=== PATIENT | male | born 1945 | race Caucasian/White ===

== ENCOUNTER 2017-12-09 11:23 | Inpatient (IN) | payer OTHER ==
[~2017-12-09] VITALS: Ht 188 cm; Wt 136.4 kg
[~2017-12-09 11:23] MED LIST: IBUP800T24 PO; LORA-352 PO; METO25TA5 PO; OMEP20CA74 OR; SIMV-13 PO; SUCR1TAB PO; SULI200T4 PO; TICA90TA PO; TRIA37.575 PO
[2017-12-09 11:56] LABS: Basophils # (auto) 0.1 uL; Basophils % (auto) 0.5 % (0.0-2.0); Eosinophils # (auto) 0.1 uL; Eosinophils % (auto) 0.8 % (0.0-7.0); Hematocrit 44.8 % (41.0-53.0); Hemoglobin 14.8 g/dL (13.5-17.5); Lymphocytes # (auto) 1.4 uL; Lymphocytes % (auto) 12.8 % (10.0-50.0); Mean Corpuscular Hemoglobin 31.8 pg (28.0-32.0); Mean Corpuscular Hgb Conc. 33.1 g/dL (32.0-36.0); Mean Corpuscular Volume 95.9 fL (80.0-100.0); Monocytes % (auto) 9.1 % (0.0-12.0); Neutrophils # (auto) 8.3 uL; Neutrophils % (auto) 76.8 % (37.0-80.0); Platelet Count (auto) 372 10^3/uL (140-450); Red Blood Cells 4.67 10^6/uL (4.5-5.90); Red Cell Distribution Width 14.4 % (11.8-14.3); White Blood Cell 10.8 10^3/uL (4.4-10.8)
[2017-12-09 12:13] LABS: Alanine Aminotransferase 38 U/L (16-61); Albumin 3.4 g/dL (3.4-5.0); Alkaline Phosphatase 84 U/L (45-117); Anion Gap 8 (5-15); Aspartate Aminotransferase 30 U/L (15-37); BUN/Creatinine Ratio 13.4; Bilirubin, Total 0.4 mg/dL (0.2-1.0); Blood Urea Nitrogen 11 mg/dL (7-18); Calcium 8.9 mg/dL (8.5-10.1); Carbon Dioxide 26 mmol/L (21-32); Chloride 103 mmol/L (98-107); GFR African American 119 mL/min; GFR Non-African American 98 mL/min; Glucose 120 mg/dL (74-106); Magnesium 2.4 mg/dL (1.6-2.6); Potassium 3.9 mmol/L (3.5-5.1); Sodium 137 mmol/L (136-145)
[2017-12-09] MEDS ORDERED: ALUM & MAG HYDROX-SIMETH LIQ(MAALOX) 30 ML PO ONE (16:45)
[2017-12-09] MEDS ORDERED: NITROGLYCERIN 0.4 MG SL TAB SL PRN (16:45)
[2017-12-09] MEDS ORDERED: MORPHINE SULFATE 4 MG/ML SYR/VIAL IV PRN (16:45)
[2017-12-09] MEDS ORDERED: ONDANSETRON HCL 4 MG/2 ML VIAL IV PRN (16:45)
[2017-12-09] MEDS ORDERED: ALUM & MAG HYDROX-SIMETH LIQ(MAALOX) 30 ML PO PRN (16:45)
[2017-12-09] MEDS ORDERED: TEMAZEPAM 15 MG CAP PO PRN (16:45)
[2017-12-09] MEDS ORDERED: LIDOCAINE VISCOUS 2% 15ML UD PO ONE (17:30)
[2017-12-09] MEDS ORDERED: DONNATAL 5ml ORAL Elix (BELLADONNA ALK-PHENOBARB) PO ONE (17:30)
[2017-12-09] MEDS: SUCRALFATE 1 GM TAB PO SCH (17:44)
[2017-12-09 19:38] VITALS: BP 142/93
[2017-12-09] MEDS: ATORVASTATIN 20 MG TAB PO SCH (21:34)
[2017-12-09] MEDS: TICAGRELOR 90 MG TAB PO SCH (21:34)
[2017-12-09] MEDS: ACETAMINOPHEN 325 MG TAB PO PRN (21:34)
[2017-12-09 22:00] VITALS: BP 107/68
[2017-12-10 05:00] VITALS: BP 129/89
[2017-12-10] MEDS: SUCRALFATE 1 GM TAB PO SCH ×2 (06:43→17:07)
[2017-12-10 06:47] LABS: BUN/Creatinine Ratio 12.2; Calcium 8.8 mg/dL (8.5-10.1); Potassium 3.9 mmol/L (3.5-5.1)
[2017-12-10] MEDS ORDERED: CLOPIDOGREL BISULFATE 75 MG TAB PO ONE (07:30)
[2017-12-10] MEDS ORDERED: MORP15TA PO (07:53)
[2017-12-10] MEDS ORDERED: MELO1TAB56 PO (07:53)
[2017-12-10] MEDS ORDERED: ASPI300S4 PR (07:53)
[2017-12-10] MEDS ORDERED: CYCL1TAB18 PO (07:53)
[2017-12-10] MEDS ORDERED: HYDR-4798 PO (07:53)
[2017-12-10] MEDS ORDERED: METF-370 PO (07:53)
[2017-12-10] MEDS ORDERED: DIAZ10TA3 PO (07:53)
[2017-12-10] MEDS ORDERED: LIDOCAINE 2%HCL (LOCAL ANESTH.) INJ 20ML MDV ONE (08:11)
[2017-12-10] MEDS ORDERED: IODIXANOL 320MG/ML 100ML BTL IV ONE (08:11)
[2017-12-10] MEDS: ASPirin 81 mg TAB PO SCH (08:45)
[2017-12-10 09:00] VITALS: BP 131/85
[2017-12-10] MEDS ORDERED: fentaNYL CITRATE 100 MCG/2 ML VL ONE (09:23)
[2017-12-10] MEDS ORDERED: SODIUM CHL 0.9% 50 ML ONE (09:23)
[2017-12-10] MEDS ORDERED: ANGIOMAX 250 MG VIAL IV ONE (09:23)
[2017-12-10] MEDS ORDERED: MIDAZOLAM HCL 1MG/1ML-2 ML VIAL ONE (09:23)
[2017-12-10] MEDS ORDERED: VERAPAMIL 2.5MG/ML INJ 2ML VIAL IV ONE (09:24)
[2017-12-10] MEDS: PANTOPRAZOLE 40 MG TAB PO SCH (10:00)
[2017-12-10] MEDS: METOPROLOL SUCCINATE XL 50 MG TAB PO SCH (10:00)
[2017-12-10] MEDS: TRIAMTERENE/HCTZ 37.5/25 MG CAP PO SCH (10:00)
[2017-12-10] MEDS: TICAGRELOR 90 MG TAB PO SCH ×2 (10:00→21:45)
[2017-12-10] MEDS: LORATADINE 10 MG TAB PO SCH (10:00)
[2017-12-10 13:22] LABS: INR 1.07 (0.9-1.15); Partial Thromboplastin Time 47.9 sec (22.64-33.71); Prothrombin Time 11.7 sec (9.37-12.3)
[2017-12-10 15:00] VITALS: BP 110/70
[2017-12-10] MEDS: ACETAMINOPHEN 325 MG TAB PO PRN ×2 (15:26→21:46)
[2017-12-10] MEDS: ATORVASTATIN 20 MG TAB PO SCH (21:45)
[2017-12-10 22:00] VITALS: BP 95/59
[2017-12-11] MEDS: HYDROcodone-ACET 5/325MG TAB PO PRN ×3 (04:04→12:31)
[2017-12-11 05:23] VITALS: BP 124/87
[2017-12-11] MEDS: ASPirin 81 mg TAB PO SCH (06:10)
[2017-12-11] MEDS: SUCRALFATE 1 GM TAB PO SCH (06:10)
[2017-12-11 07:16] LABS: Potassium 3.7 mmol/L (3.5-5.1)
[2017-12-11 07:25] LABS: BUN/Creatinine Ratio 17.8
[2017-12-11] MEDS: MORPHINE SULFATE 4 MG/ML SYR/VIAL IV PRN ×2 (07:59→12:01)
[2017-12-11 09:00] VITALS: BP 130/83
[2017-12-11] MEDS: TRIAMTERENE/HCTZ 37.5/25 MG CAP PO SCH (09:41)
[2017-12-11] MEDS: TICAGRELOR 90 MG TAB PO SCH (09:41)
[2017-12-11] MEDS: METOPROLOL SUCCINATE XL 50 MG TAB PO SCH (09:42)
[2017-12-11] MEDS: PANTOPRAZOLE 40 MG TAB PO SCH (09:43)
[2017-12-11] MEDS: LORATADINE 10 MG TAB PO SCH (09:45)
[2017-12-11 12:00] VITALS: BP 122/90
== END 2017-12-11 13:23 | disposition home or self-care (01) | DRG 251 ==
LOC: EDBD 11:23 → ER 11:23 → TELE 11:24 → TELE-EAST 19:38
PROVIDERS: ADMIT Family Medicine; ATTEND Family Medicine
PROC: 02703ZZ Dilation of Coronary Artery, One Artery, Percutaneous Approach (ICD-10-PCS; principal; 2017-12-10)
PROC: 4A023N7 Measurement of Cardiac Sampling and Pressure, Left Heart, Percutaneous Approach (ICD-10-PCS; 2017-12-10)
PROC: B2111ZZ Fluoroscopy of Multiple Coronary Arteries using Low Osmolar Contrast (ICD-10-PCS; 2017-12-10)
DX: T82.855A Stenosis of coronary artery stent, initial encounter (principal); E66.2 Morbid (severe) obesity with alveolar hypoventilation; E11.9 Type 2 diabetes mellitus without complications; I25.110 Atherosclerotic heart disease of native coronary artery with unstable angina pectoris; I10 Essential (primary) hypertension; E78.5 Hyperlipidemia, unspecified; K21.9 Gastro-esophageal reflux disease without esophagitis; Y83.8 Other surgical procedures as the cause of abnormal reaction of the patient, or of later complication, without mention of misadventure at the time of the procedure; Z88.0 Allergy status to penicillin; Z79.899 Other long term (current) drug therapy; Z68.38 Body mass index [BMI] 38.0-38.9, adult; Z79.82 Long term (current) use of aspirin; Z82.49 Family history of ischemic heart disease and other diseases of the circulatory system; Z87.891 Personal history of nicotine dependence; Z95.5 Presence of coronary angioplasty implant and graft; Y92.89 Other specified places as the place of occurrence of the external cause; Z90.49 Acquired absence of other specified parts of digestive tract
CPT/HCPCS: 36415; 71045; 80048; 80053; 80061; 83735; 83880; 84443; 84484; 85025; 85610; 85730; 92920; 93005; 93458; 94761; 99152; J2250; Q9967

== ENCOUNTER 2019-12-24 17:05 | Inpatient (IN) | payer OTHER ==
[~2019-12-24] VITALS: Ht 188 cm; Wt 136.1 kg
[~2019-12-24 17:05] MED LIST changes: +ASPI300S4 PR; +CYCL1TAB18 PO; +DIAZ10TA3 PO; +HYDR-4798 PO; -IBUP800T24 PO; +METF-370 PO; +MORP15TA PO; -SULI200T4 PO; +TRIA37.55 PO; -TRIA37.575 PO
[2019-12-24] MEDS ORDERED: SODIUM CHLORIDE 0.9% 1,000 ML IV ONE ×2 (17:41→23:45)
[2019-12-24] MEDS ORDERED: ASPirin 81 mg TAB PO ONE (17:45)
[2019-12-24 18:10] LABS: Basophils # (auto) 0 10 ^3/uL (0-0.2); Basophils % (auto) 0.4 % (0.0-2.0); Eosinophils # (auto) 0 10 ^3/uL (0-0.8); Eosinophils % (auto) 0.2 % (0.0-7.0); Hematocrit 41.7 % (41.0-53.0); Hemoglobin 14.2 g/dL (13.5-17.5); Lymphocytes % (auto) 8.9 % (10.0-50.0); Mean Corpuscular Hemoglobin 32.6 pg (28.0-32.0); Mean Corpuscular Volume 95.9 fL (80.0-100.0); Monocytes # (auto) 0.9 10 ^3/uL (0-1.3); Monocytes % (auto) 7.7 % (0.0-12.0); Neutrophils # (auto) 9.3 10 ^3/uL (1.6-8.6); Neutrophils % (auto) 82.8 % (37.0-80.0); Platelet Count (auto) 302 10^3/uL (140-450); Red Blood Cells 4.35 10^6/uL (4.5-5.90); Red Cell Distribution Width 13.9 % (11.8-14.3); White Blood Cell 11.2 10^3/uL (4.4-10.8)
[2019-12-24 18:25] LABS: INR 1.09 (0.9-1.15); Partial Thromboplastin Time 34.8 sec (23.64-32.05)
[2019-12-24 18:26] LABS: Albumin 2.7 g/dL (3.4-5.0); Anion Gap 4 (5-15); BUN/Creatinine Ratio 17.3; Blood Urea Nitrogen 17 mg/dL (7-18); Calcium 8.5 mg/dL (8.5-10.1); Carbon Dioxide 26 mmol/L (21-32); Chloride 106 mmol/L (98-107); GFR African American 96 mL/min; GFR Non-African American 80 mL/min; Glucose 116 mg/dL (74-106); Magnesium 1.7 mg/dL (1.6-2.6); Potassium 4.1 mmol/L (3.5-5.1); Sodium 136 mmol/L (136-145)
[2019-12-24 18:38] LABS: Alanine Aminotransferase 29 U/L (16-61); Alkaline Phosphatase 108 U/L (45-117); Aspartate Aminotransferase 18 U/L (15-37); Bilirubin, Total 0.5 mg/dL (0.2-1.0); Total Protein 7.1 g/dL (6.4-8.2)
[2019-12-24] MEDS ORDERED: ONDANSETRON HCL 4 MG/2 ML VIAL IV ONE (19:00)
[2019-12-24] MEDS ORDERED: MORPHINE SULF INJ 2 MG/ML SYRINGE 1ML IV ONE (19:00)
[2019-12-24 19:59] LABS: Urine WBC None Seen /hpf (0 - 3)
[2019-12-24 20:09] LABS: Urine Bacteria NONE SEEN /hpf (None Seen); Urine Blood Negative /uL (Negative); Urine Mucus FEW (None Seen); Urine Specific Gravity 1.011 (1.001-1.035)
[2019-12-24] MEDS ORDERED: MORPHINE SULF INJ 2 MG/ML SYRINGE 1ML IV PRN (23:45)
[2019-12-24] MEDS ORDERED: NITROGLYCERIN 0.4 MG SL TAB SL PRN (23:45)
[2019-12-24] MEDS ORDERED: ONDANSETRON HCL 4 MG/2 ML VIAL IV PRN (23:45)
[2019-12-24] MEDS ORDERED: MORPHINE SULFATE 4 MG/ML SYR/VIAL IV PRN (23:45)
[2019-12-24] MEDS ORDERED: IOHEXOL 350 MG/ML 100ML IJ ONE (23:51)
[2019-12-25] VITALS (7 sets, daily range): BP systolic 106–127; BP diastolic 65–81
[2019-12-25] MEDS ORDERED: ENOXAPARIN SOD 150 MG/1 ML SYRINGE SC ONE
[2019-12-25] MEDS ORDERED: ATORVASTATIN 20 MG TAB PO SCH (00:08)
[2019-12-25] MEDS ORDERED: SILO8CAP13 PO (03:29)
[2019-12-25] MEDS ORDERED: ESOM20CA PO (03:29)
[2019-12-25 06:25] LABS: Basophils # (auto) 0 10 ^3/uL (0-0.2); Basophils % (auto) 0.4 % (0.0-2.0); Eosinophils # (auto) 0 10 ^3/uL (0-0.8); Eosinophils % (auto) 0.1 % (0.0-7.0); Hematocrit 40.5 % (41.0-53.0); Lymphocytes # (auto) 0.9 10 ^3/uL (0.4-5.4); Lymphocytes % (auto) 10.9 % (10.0-50.0); Mean Corpuscular Hemoglobin 33.2 pg (28.0-32.0); Mean Corpuscular Hgb Conc. 34.6 g/dL (32.0-36.0); Mean Corpuscular Volume 95.8 fL (80.0-100.0); Monocytes # (auto) 0.6 10 ^3/uL (0-1.3); Monocytes % (auto) 7.3 % (0.0-12.0); Neutrophils # (auto) 6.7 10 ^3/uL (1.6-8.6); Neutrophils % (auto) 81.3 % (37.0-80.0); Platelet Count (auto) 245 10^3/uL (140-450); Red Blood Cells 4.23 10^6/uL (4.5-5.90); White Blood Cell 8.2 10^3/uL (4.4-10.8)
[2019-12-25 06:44] LABS: Calcium 8.1 mg/dL (8.5-10.1); Potassium 4.4 mmol/L (3.5-5.1)
[2019-12-25 06:51] LABS: BUN/Creatinine Ratio 14.9
[2019-12-25] MEDS ORDERED: ENOXAPARIN SOD 40 MG/0.4 ML SYRINGE SC SCH (10:00)
[2019-12-25] MEDS ORDERED: PANTOPRAZOLE 40 MG TAB PO SCH (10:00)
[2019-12-25] MEDS ORDERED: METOPROLOL TARTRATE 25 MG TAB PO SCH (10:00)
[2019-12-25] MEDS ORDERED: ASPirin 300 MG RECTAL SUPP PR SCH (10:00)
[2019-12-25] MEDS ORDERED: TICAGRELOR 90 MG TAB PO SCH (10:00)
== END 2019-12-25 19:15 | disposition home health service (06) | DRG 303 ==
LOC: EDBD 17:05 → ER 17:05 → TELE 17:06 → TELE-WESTW 23:49
PROVIDERS: ADMIT Hospitalist; ATTEND Hospitalist
DX: I25.110 Atherosclerotic heart disease of native coronary artery with unstable angina pectoris (principal); I10 Essential (primary) hypertension; E11.9 Type 2 diabetes mellitus without complications; N40.0 Benign prostatic hyperplasia without lower urinary tract symptoms; I48.91 Unspecified atrial fibrillation; E78.5 Hyperlipidemia, unspecified; Z95.5 Presence of coronary angioplasty implant and graft; Z88.0 Allergy status to penicillin; Z90.49 Acquired absence of other specified parts of digestive tract; Z87.11 Personal history of peptic ulcer disease
CPT/HCPCS: 36415; 71046; 71275; 80048; 80053; 80061; 81001; 83036; 83735; 84443; 84484; 85025; 85379; 85610; 85730; 93306; 96361; 96372; 96374; 96375; G0378; J2405

== ENCOUNTER 2022-06-26 06:21 | Day surgery (SDC) | payer OTHER ==
[~2022-06-26] VITALS: Ht 188 cm; Wt 140.6 kg
[~2022-06-26 06:21] MED LIST changes: +ASPI1TAB20 PO; -ASPI300S4 PR; +ATOR-47 PO; -CYCL1TAB18 PO; -DIAZ10TA3 PO; +ESOM20CA PO; -HYDR-4798 PO; -LORA-352 PO; +MELO1TAB56 PO; +MONT-8 PO; -MORP15TA PO; -OMEP20CA74 OR; -SIMV-13 PO; -SUCR1TAB PO; -TRIA37.55 PO
[2022-06-26] MEDS ORDERED: VANCOMYCIN HCL 1000 MG VL ONE (07:06)
[2022-06-26] MEDS ORDERED: BUPIVACAINE W/ EPINEPH 0.5% INJ 50ML MDV IJ ONE (08:42)
[2022-06-26] MEDS ORDERED: LIDOCAINE W/ EPINEPHRINE 2% INJ 20ML VIAL ONE (08:50)
[2022-06-26] MEDS ORDERED: LIDOCAINE HCL 100 MG/5ML (2%) SYRG INJ IV ONE (09:07)
[2022-06-26 09:55] VITALS: BP 115/73
== END 2022-06-26 10:22 | disposition home or self-care (01) ==
LOC: SUR 06:21
PROVIDERS: ATTEND Orthopaedic Surgery Adult Reconstructive Orthopaedic Surgery
DX: M65.331 Trigger finger, right middle finger (principal); I10 Essential (primary) hypertension; E11.9 Type 2 diabetes mellitus without complications; Z95.5 Presence of coronary angioplasty implant and graft; Z98.890 Other specified postprocedural states; Z79.899 Other long term (current) drug therapy; Z88.0 Allergy status to penicillin; Z20.822 Contact with and (suspected) exposure to COVID-19
CPT/HCPCS: 26055; 82962; J3370; U0003

== ENCOUNTER 2024-07-24 20:33 | Emergency (ER) | payer OTHER ==
[~2024-07-24] VITALS: Ht 188 cm; Wt 140.9 kg
[~2024-07-24 20:33] MED LIST changes: +MELO15TA29 PO; -MELO1TAB56 PO
[2024-07-24 21:07] LABS: Basophils # (auto) 0.1 10 ^3/uL (0-0.2); Basophils % (auto) 0.9 % (0.0-2.0); Eosinophils # (auto) 0.1 10 ^3/uL (0-0.8); Eosinophils % (auto) 1.9 % (0.0-7.0); Hematocrit 46.7 % (41.0-53.0); Hemoglobin 15.7 g/dL (13.5-17.5); Lymphocytes # (auto) 2.1 10 ^3/uL (0.4-5.4); Lymphocytes % (auto) 26.3 % (10.0-50.0); Mean Corpuscular Hemoglobin 32.8 pg (28.0-32.0); Mean Corpuscular Hgb Conc. 33.7 g/dL (32.0-36.0); Mean Corpuscular Volume 97.2 fL (80.0-100.0); Monocytes # (auto) 0.9 10 ^3/uL (0-1.3); Monocytes % (auto) 11.4 % (0.0-12.0); Neutrophils # (auto) 4.7 10 ^3/uL (1.6-8.6); Neutrophils % (auto) 59.5 % (37.0-80.0); Nucleated Red Blood Cells % 0.1 %; Platelet Count (auto) 311 10^3/uL (140-450); Red Cell Distribution Width 13.7 % (11.8-14.3)
[2024-07-24 21:21] LABS: Chloride 105 mmol/L (98-107); Potassium 4.1 mmol/L (3.5-5.1); Sodium 138 mmol/L (136-145)
[2024-07-24 21:22] LABS: Anion Gap 7 (5-15); Calcium 9.6 mg/dL (8.7-10.4); Carbon Dioxide 26 mmol/L (20-31)
[2024-07-24 21:26] VITALS: PULSE 78; RESP 11; TEMP 98.2; O2SAT 9
[2024-07-24 21:27] LABS: BUN/Creatinine Ratio 23.8 (10.0-20.0); Blood Urea Nitrogen 20 mg/dL (9-23); Glucose 130 mg/dL (74-106)
[2024-07-24] MEDS: PANTOPRAZOLE 40 MG/10 ML VIAL INJ IV ONE (21:39)
[2024-07-24 23:33] LABS: Urine WBC None Seen /hpf (0 - 3)
[2024-07-24 23:44] LABS: Urine Bacteria FEW /hpf (None Seen); Urine Blood Negative /uL (Negative); Urine Clarity Clear (Clear); Urine Color Yellow (Yellow); Urine Mucus FEW (None Seen); Urine Protein, UAD Negative (Negative); Urine Specific Gravity 1.025 (1.001-1.035); Urine Urobilinogen Normal (Negative)
[2024-07-25] VITALS: BP 110/74; PULSE 70; RESP 10; O2SAT 94
== END 2024-07-25 00:29 | disposition home or self-care (01) ==
LOC: ER 20:33 → EDBD 20:33 → ER 07-25 00:29
DX: R07.89 Other chest pain (principal); I10 Essential (primary) hypertension; E78.5 Hyperlipidemia, unspecified; K21.9 Gastro-esophageal reflux disease without esophagitis; E11.9 Type 2 diabetes mellitus without complications; I25.10 Atherosclerotic heart disease of native coronary artery without angina pectoris; I48.91 Unspecified atrial fibrillation; Z90.49 Acquired absence of other specified parts of digestive tract; Z98.890 Other specified postprocedural states; Z87.891 Personal history of nicotine dependence; Z88.0 Allergy status to penicillin; Z79.899 Other long term (current) drug therapy; Z79.82 Long term (current) use of aspirin; Z79.84 Long term (current) use of oral hypoglycemic drugs
CPT/HCPCS: 36415; 71045; 80048; 81001; 83880; 84484; 85025; 93005; 96374; 99285; J2470

== ENCOUNTER 2025-01-25 08:01 | Emergency (ER) | payer OTHER ==
[~2025-01-25] VITALS: Ht 185.4 cm; Wt 145.5 kg
--- NOTE | 2025-01-25 08:18 | ECG ---
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
[2025-01-25 08:33] VITALS: PULSE 69; RESP 16; O2SAT 91
--- NOTE | 2025-01-25 08:37 | ED.PDOC ---
HPI (NEURO) HPI Comments 79 y.o female with PMHx of AFIB, CAD, HTN, Hyperlipidemia, DM, and GERD, presents to the ED via EMS for a chief complaint of dizziness s/p bending down today. Patient reports near syncopal episode today with no LOC but states he did fall onto his buttocks and presents with superficial skin abrasions to his right lower knee and right elbow. No bleeding, deformities or open wounds noted. Patient reports for the past week experiencing dizzy spells s/p being placed on Ozempic by PCP 4 weeks ago. Patient did not take it this morning as he wants to discontinue it. He denies any chest pain, SOB, abdominal pain, nausea, vomiting, diarrhea. Chief Complaint: Dizziness Time Seen by MD: 08:11 Primary Care Provider: QUINTON Reviewed Notes: Nurses Notes, Medications, Allergies Information Source: Patient Mode of Arrival: EMS Dizziness/Weakness Severity: Unable to do activities Timing: Hours Duration: Since onset Onset: With light exertion Circumstances: Spontaneous Symptoms: Near syncope History of: DM, Hypertension Modifying factors: Nothing; No Head movement Associated Signs and Symptoms: None Past Medical History PAST MEDICAL HISTORY: AFIB, CAD, DM, GERD, High Lipids, HTN, PUD Surgical History: Appendectomy, Cholecystectomy, PTCA Family History Family History: No family hx of Heart angelina, No family hx of HTN Social History Smoker: Non-Smoker, Quit Greater Than 1 Year Alcohol: Denies ETOH Use Drugs: Denies Drug Use Lives In: Home Constitutional: denies: chills, diaphoresis, fatigue, fever, malaise, sweats, weakness, others EENTM: denies: blurred vision, double vision, ear bleeding, ear discharge, ear drainage, ear pain, ear ringing, eye pain, eye redness, hearing loss, mouth pain, mouth swelling, nasal discharge, nose bleeding, nose congestion, nose pain, photophobia, tearing, throat pain, throat swelling, voice changes, others Respiratory: denies: cough, hemoptysis, orthopnea, SOB at rest, shortness of breath, SOB with excertion, stridor, wheezing, others Cardiovascular: reports: dizzy spells; denies: chest pain, diaphoresis, Dyspnea on exertion, edema, irregular heart beat, left arm pain, lightheadedness, p alpitations, PND, syncope, others Gastrointestinal: denies: abdomen distended, abdominal pain, blood streaked bowels, constipated, diarrhea, dysphagia, difficulty swallowing, hematemesis, melena, nausea, poor appetite, poor fluid intake, rectal bleeding, rectal pain, vomiting, others Genitourinary: denies: burning, dysuria, flank pain, frequency, hematuria, incontinence, penile discharge, penile sore, pain, testicle pain, testicle swelling, urgency, others Neurological: reports: dizziness; denies: fainting, headache, left sided numbness, left sided weakness, numbness, paresthesia, pre-existing deficit, right sided numbness, right sided weakness, seizure, speech problems, tingling, tremors, weakness, others Musculoskeletal: denies: back pain, gout, joint pain, joint swelling, muscle pain, muscle stiffness, neck pain, others Integumetry: denies: bruises, change in color, change in hair/nails, dryness, laceration, lesions, lumps, rash, wounds, others Allergic/Immunocompromised: denies: Difficulty Healing, Frequent Infections, Hives, Itching, others Hematologic/Lymphatic: denies: anemia, blood clots, easy bleeding, easy bruising, swollen glands, others Endocrine: denies: excessive hunger, excessive sweating, excessive thirst, excessive urination, flushing, intolerance to cold, intolerance to heat, unexplained weight gain, unexplained weight loss, others Psychiatric: denies: anxiety, bipolar disorder, depression, hopeless, panic disorder, schizophrenia, sleepless, suicidal, others All Other Systems: Reviewed and Negative Physical Exam General Appearance: Moderate Distress HEENT: Normal ENT Inspection, Pharynx Normal, TMs Normal Neck: Full Range of Motion, Non-Tender, Normal, Normal Inspection Respiratory: Chest Non-Tender, Lungs Clear, No Accessory Muscle Use, No Respiratory Distress, Normal Breath Sounds Cardiovascular: No Edema, No JVD, No Murmur, No Gallop, Normal Peripheral Pulses, Regular Rate/Rhythm Breast Exam: Deferred Gastrointestinal: No Organomegaly, Non Tender, No Pulsatile Mass, Normal Bowel Sounds, Soft Genitalia: Deferred Pelvic: Deferred Rectal: Deferred Extremities: No calf tenderness, Normal capillary refill, Normal inspection, Normal range of motion, Non-tender, No pedal edema Musculoskeletal : Apperance: Normal 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 Was a procedure done?: No Differential Diagnosis (SZ) Seizure: Psychogenic Seizure, Closed Head Injury, CVA/TIA General Weakness: Dehydration, Electrolyte imbalance, Hypotension, Meniere's disease, Vertigo: central, Vertigo: peripheral X-Ray, Labs, Meds, VS Vital Signs Date Time Temp Pulse Resp B/P (MAP) Pulse Ox O2 Delivery O2 Flow Rate FiO2 01/25/25 08:48 73 01/25/25 08:33 69 16 98/66 (77) 91 01/25/25 08:33 69 16 91 Room Air* 0 21 01/25/25 08:05 97.7 84 15 99/56 (70) 94 97.7 01/25/25 08:03 73 Lab Test 01/25/25 08:41 01/25/25 08:09 Range/Units Sodium Level 138 136-145 mmol/L Potassium Level 4.4 3.5-5.1 mmol/L Chloride Level 104 98-107 mmol/L Carbon Dioxide Level 24 20-31 mmol/L Anion Gap 10 5-15 Blood Urea Nitrogen 15 9-23 mg/dL Creatinine 0.93 0.700-1.30 mg/dL Glomerular Filtration Rate Calc 84 >90 mL/min BUN/Creatinine Ratio 16.1 10.0-20.0 Serum Glucose 123 H 74-106 mg/dL Calcium Level 9.7 8.7-10.4 mg/dL Troponin I High Sensitivity < 3 L </=54 ng/L POC Glucose 121 H 70-106 mg/dl Current Medications Medications (Trade) Dose Ordered Sig/Tommy Route Start Time Stop Time Status Last Admin Sodium Chloride 1,000 ml @ 1,000 mls/hr Q1H ONCE IV 01/25/25 09:00 01/25/25 09:59 01/25/25 09:01 Patient alert. No sign of any distress. Vitals stable. Answering questions. Physical examination pristine. Patient states that he is feeling much better. All these symptoms started after taking Ozempic. Establish intravenous access. Was given fluids. EKG reviewed does not show any acute changes. CT of the head was not done because physical examination pristine. Satisfied with not having a CT scan. Reviewed his history. Explained to the patient. Was told to follow up with his primary care physician. Was told to come back if there is any problem. Time of 1ST Reevaluation: 08:33 Reevaluation 1ST: Improved Patient Education/Counseling: Diagnosis, Treatment, Prognosis Family Education/Counseling: No Family Present Departure 1 Departure Time of Disposition: 08:44 Impression: Primary Impression: Autonomic disorder Additional Impression: Hyperglycemia Disposition: 01 HOME / SELF CARE / HOMELESS Condition: Good Discharged With: Self Critical Care Note Critical Care Time?: No Stability Stability form required: No I personally scribed for JESUS ALBERTO BOO MD ([email or web address]) on 01/25/25 at 08:37. Electronically submitted by Annalise Pat ([facility]). JESUS ALBERTO BOO MD Jan 25, 2025 08:37
[2025-01-25 09:00] LABS: Chloride 104 mmol/L (98-107); Potassium 4.4 mmol/L (3.5-5.1); Sodium 138 mmol/L (136-145)
[2025-01-25 09:01] LABS: Anion Gap 10 (5-15); Calcium 9.7 mg/dL (8.7-10.4); Carbon Dioxide 24 mmol/L (20-31)
[2025-01-25] MEDS: SODIUM CHLORIDE 0.9% 1,000 ML IV ONE (09:01)
[2025-01-25 09:06] LABS: BUN/Creatinine Ratio 16.1 (10.0-20.0); Blood Urea Nitrogen 15 mg/dL (9-23); Glucose 123 mg/dL (74-106)
[2025-01-25] MEDS ORDERED: METO25TA5 PO (09:25)
[2025-01-25] MEDS ORDERED: DABI150C5 PO (09:25)
[2025-01-25] MEDS ORDERED: ESOM20CA PO (09:25)
[2025-01-25] MEDS ORDERED: GABA-1250 PO (09:25)
[2025-01-25] MEDS ORDERED: DOCU-94 PO (09:25)
[2025-01-25] MEDS ORDERED: TAMS0.4C39 PO (09:25)
[2025-01-25] MEDS ORDERED: PRAS10TA8 PO (09:25)
[2025-01-25] MEDS ORDERED: TRAM50TA2 PO (09:25)
[2025-01-25] MEDS ORDERED: EZET10TA22 PO (09:25)
[2025-01-25 10:11] VITALS: BP 101/65; PULSE 77; RESP 17; TEMP 98; O2SAT 95
== END 2025-01-25 10:18 | disposition home or self-care (01) ==
LOC: EDBD 08:01 → EDSEX 08:01 → ER 08:01
DX: G90.9 Disorder of the autonomic nervous system, unspecified (principal); E11.65 Type 2 diabetes mellitus with hyperglycemia; E78.5 Hyperlipidemia, unspecified; I10 Essential (primary) hypertension; I25.10 Atherosclerotic heart disease of native coronary artery without angina pectoris; I48.91 Unspecified atrial fibrillation; K21.9 Gastro-esophageal reflux disease without esophagitis; Z90.49 Acquired absence of other specified parts of digestive tract; Z87.11 Personal history of peptic ulcer disease
CPT/HCPCS: 36415; 80048; 82947; 84484; 93005; 96360; 99284; J7030; 82962